=== PATIENT | female | born 1980 | race Caucasian/White ===

== ENCOUNTER 2017-12-06 14:44 | Inpatient (IN) | payer OTHER ==
[2017-12-06] MEDS ORDERED: MAALOX 30 ML SUSP *UDC PO (17:15)
[2017-12-06] MEDS ORDERED: traZODone 50 MG TAB PO (17:15)
[2017-12-06] MEDS ORDERED: MOM 30ML SUSPENSION UDC PO (17:15)
[2017-12-06] MEDS: PANTOPRAZOLE 40MG TAB (PROTONIX) PO (22:28)
[2017-12-06] MEDS: TOPIRAMATE (TopAMAX) 100 MG TAB PO (22:28)
[2017-12-06] MEDS: traZODone 100 MG TAB PO (22:28)
[2017-12-07] MEDS: PANTOPRAZOLE 40MG TAB (PROTONIX) PO ×2 (08:33→22:40)
[2017-12-07] MEDS: TOPIRAMATE (TopAMAX) 100 MG TAB PO ×2 (08:33→22:40)
[2017-12-07] MEDS: NICOTINE 21MG/24HR 1 EA TRANSDERMAL TD ×3 (09:00→12:29)
[2017-12-07] MEDS ORDERED: LORazepam 2 MG TAB PO (13:00)
[2017-12-07] MEDS: lamoTRIgine 100MG TAB PO (14:42)
[2017-12-07] MEDS: FOLIC ACID 1 MG TAB PO (14:43)
[2017-12-07] MEDS: THIAMINE 100 MG TAB PO ×2 (14:43→22:40)
[2017-12-07] MEDS: FLUoxetine 20 MG CAP PO (14:43)
[2017-12-07] MEDS: MULTIVITAMINS/MINERALS THERAP 1 TAB PO (14:43)
[2017-12-07] MEDS: traZODone 50 MG TAB PO (22:40)
[2017-12-07] MEDS: lamoTRIgine 25 MG TAB PO (22:40)
[2017-12-07] MEDS: ACETAMINOPHEN TAB 650MG DOSE (2X325MG) PO (22:46)
[2017-12-08] MEDS: NICOTINE 21MG/24HR 1 EA TRANSDERMAL TD (09:00)
[2017-12-08] MEDS: FLUoxetine 20 MG CAP PO (09:01)
[2017-12-08] MEDS: THIAMINE 100 MG TAB PO ×2 (09:01→22:08)
[2017-12-08] MEDS: MULTIVITAMINS/MINERALS THERAP 1 TAB PO (09:01)
[2017-12-08] MEDS: PANTOPRAZOLE 40MG TAB (PROTONIX) PO ×2 (09:01→22:08)
[2017-12-08] MEDS: TOPIRAMATE (TopAMAX) 100 MG TAB PO ×2 (09:01→22:08)
[2017-12-08] MEDS: lamoTRIgine 100MG TAB PO (09:01)
[2017-12-08] MEDS: FOLIC ACID 1 MG TAB PO (09:01)
[2017-12-08] MEDS: traZODone 50 MG TAB PO (22:08)
[2017-12-08] MEDS: lamoTRIgine 25 MG TAB PO (22:08)
[2017-12-09] MEDS: NICOTINE 21MG/24HR 1 EA TRANSDERMAL TD (09:02)
[2017-12-09] MEDS: FLUoxetine 20 MG CAP PO (09:03)
[2017-12-09] MEDS: MULTIVITAMINS/MINERALS THERAP 1 TAB PO (09:03)
[2017-12-09] MEDS: TOPIRAMATE (TopAMAX) 100 MG TAB PO ×2 (09:03→22:08)
[2017-12-09] MEDS: FOLIC ACID 1 MG TAB PO (09:03)
[2017-12-09] MEDS: lamoTRIgine 100MG TAB PO (09:03)
[2017-12-09] MEDS: THIAMINE 100 MG TAB PO ×2 (09:03→22:09)
[2017-12-09] MEDS: PANTOPRAZOLE 40MG TAB (PROTONIX) PO ×2 (09:03→22:09)
[2017-12-09] MEDS: IBUPROFEN 400 MG TAB PO ×2 (09:05→22:10)
[2017-12-09] MEDS: lamoTRIgine 25 MG TAB PO (22:08)
[2017-12-09] MEDS: traZODone 100 MG TAB PO (22:09)
[2017-12-10] MEDS: TOPIRAMATE (TopAMAX) 100 MG TAB PO (09:11)
[2017-12-10] MEDS: MULTIVITAMINS/MINERALS THERAP 1 TAB PO (09:11)
[2017-12-10] MEDS: lamoTRIgine 100MG TAB PO (09:11)
[2017-12-10] MEDS: NICOTINE 21MG/24HR 1 EA TRANSDERMAL TD (09:11)
[2017-12-10] MEDS: FLUoxetine 20 MG CAP PO (09:11)
[2017-12-10] MEDS: PANTOPRAZOLE 40MG TAB (PROTONIX) PO (09:11)
[2017-12-10] MEDS: FOLIC ACID 1 MG TAB PO (09:11)
== END 2017-12-10 11:45 | disposition home or self-care (01) | DRG 751 ==
LOC: M ED 14:44 → M ED INP 17:12 → M PSY 18:23
DX: F33.2 Major depressive disorder, recurrent severe without psychotic features (principal); F60.3 Borderline personality disorder; K21.9 Gastro-esophageal reflux disease without esophagitis; G43.909 Migraine, unspecified, not intractable, without status migrainosus; E04.9 Nontoxic goiter, unspecified; F17.210 Nicotine dependence, cigarettes, uncomplicated; Z79.899 Other long term (current) drug therapy; Z88.2 Allergy status to sulfonamides; Z88.8 Allergy status to other drugs, medicaments and biological substances